=== PATIENT | male | born 1945 | race Caucasian/White ===

== ENCOUNTER 2016-07-10 05:56 | Day surgery (SDC) | payer MEDICARE, MEDICAID ==
[2013-01-01 13:44] VITALS: BMI 31.6
[2016-07-10] MEDS ORDERED: Propofol 10 mg/ml Inj (20 ML) ONE ×3 (08:06→09:12)
[2016-07-10] MEDS ORDERED: Lidocaine Hydrochloride 5 ML INJ ONE (08:10)
--- NOTE | 2016-07-10 08:14 | CP.SDSHP ---
Same Day Surgery H & P - History Proposed Procedure: Colonoscopy Pre-Op Diagnosis: History of polyps - Previous Medical/Surgical History Cardiac: Hypertension Endocrine/Metabolic: Obesity Previous Surgical History: None - Allergies Allergies: Allergies No Known Allergies Allergy (Verified 07/10/16 06:46) - Current Medications Current Medications: See reconciliation sheet - Physical Exam General Appearance: WD WN male in NAD Vital Signs: BP 188/106 P 105 R 18 T 98 Mental Status: Alert & Oriented x3 Neuro: WNL Heart: WNL Lungs: WNL GI: WNL - {Optional Preform as Required} Abdomen: WNL - Impression Impression: History of polyps Pt. Evaluated Today:Candidate for Anesthesia & Procedure: Yes - Date & Time Date: 07/10/16 Time: 08:14 Short Stay Discharge - Short Stay Discharge Admitting Diagnosis/Reason for Visit: DIARRHEA, UNSPECIFIED,PERSONAL HISTORY OF COLONIC Disposition: HOME/ ROUTINE
[2016-07-10] MEDS ORDERED: Lactated Ringer's 1,000 ML IV SCH (08:15)
[2016-07-10] MEDS ORDERED: Lactated Ringer's 500 ML IV ONE ×2 (08:16)
[2016-07-12 15:29] VITALS: BP 160/90; PULSE 91; RESP 21; TEMP 98.5; O2SAT 98
== END 2016-07-10 11:15 | disposition home or self-care (01) ==
LOC: C.ENDO 05:56
PROVIDERS: ATTEND Internal Medicine Gastroenterology
DX: Z12.11 Encounter for screening for malignant neoplasm of colon (principal); D12.3 Benign neoplasm of transverse colon; Z86.010 Personal history of colon polyps
CPT/HCPCS: 45380; 45385; 87045; 87177; 87209; 87230; 88305; J2704; J3010; J7120